=== PATIENT | male | born 1950 | race Caucasian/White ===

== ENCOUNTER 2016-10-09 13:17 | Observation (INO) | payer OTHER, MEDICARE ==
[~2016-10-09] VITALS: Ht 180.3 cm; Wt 127.0 kg
[2016-10-09 14:02] LABS: Basophils # (auto) 0.1 uL; Basophils % (auto) 0.8 % (0.0-2.0); Eosinophils # (auto) 0.2 uL; Eosinophils % (auto) 2.4 % (0.0-7.0); Hematocrit 45.5 % (41.0-53.0); Hemoglobin 15.4 g/dL (13.5-17.5); Lymphocytes # (auto) 1.5 uL; Mean Corpuscular Hemoglobin 31.8 pg (28.0-32.0); Mean Corpuscular Hgb Conc. 33.9 g/dL (32.0-36.0); Mean Corpuscular Volume 93.9 fL (80.0-100.0); Mean Platelet Volume 7.4 fL (7.4-10.4); Monocytes # (auto) 0.5 uL; Monocytes % (auto) 6.8 % (0.0-12.0); Neutrophils # (auto) 4.8 uL; Platelet Count (auto) 236 10^3/uL (140-450); Red Cell Distribution Width 13.4 % (11.6-16.0)
[2016-10-09] MEDS ORDERED: ALBUTEROL SULF 2.5 MG/0.5ML(0.5%) NEB SOLN HHN ONE (14:30)
[2016-10-09] MEDS ORDERED: methylPREDNISolone SOD SUCC 125 MG/2 ML VL IV ONE (14:30)
[2016-10-09] MEDS ORDERED: IPRATROPIUM BROM 0.5 MG/2.5ML INH SOL HHN ONE (14:30)
[2016-10-09 14:32] LABS: B-Type Natriuretic Peptide 98.05 pg/mL (0-100)
[2016-10-09 14:36] LABS: Temperature: 23.9 C (20.0-25.0)
[2016-10-09 14:40] LABS: Albumin 3.7 g/dL (3.4-5.0); Alkaline Phosphatase 83 U/L (45-117); Anion Gap 8 (5-15); Aspartate Aminotransferase 17 U/L (15-37); BUN/Creatinine Ratio 15.2; Bilirubin, Total 0.6 mg/dL (0.2-1.0); Blood Urea Nitrogen 16 mg/dL (7-18); Calcium 8.8 mg/dL (8.5-10.1); Carbon Dioxide 26 mmol/L (21-32); Chloride 106 mmol/L (98-107); GFR African American 91 mL/min; GFR Non-African American 75 mL/min; Glucose 105 mg/dL (74-106); Magnesium 2.4 mg/dL (1.6-2.6); Potassium 4.1 mmol/L (3.5-5.1); Sodium 140 mmol/L (136-145); Total Protein 7.3 g/dL (6.4-8.2)
[2016-10-09] MEDS ORDERED: AZITHROMYCIN 500MG/D5W 250ML 250 ML IV ONE (15:00)
[2016-10-09] MEDS ORDERED: cefTRIAXone 1GM/50ML D5W 50 ML IV ONE (15:00)
[2016-10-09 16:06] LABS: Urine RBC None Seen /hpf (0 - 3)
[2016-10-09 16:14] LABS: Urine Bilirubin Negative (Negative); Urine Blood Negative /uL (Negative); Urine Color Yellow (Yellow); Urine Glucose Normal (Normal); Urine Ketone Negative (Negative); Urine Nitrite Negative (Negative); Urine Squamous Epithelial Cell FEW /hpf (<5); Urine Urobilinogen Normal (Negative); Urine pH 5.5 (5.0-8.0)
[2016-10-09 17:41] VITALS: BP 127/88
== END 2016-10-09 17:55 | disposition short-term general hospital (02) | DRG 194 ==
LOC: ER 13:17 → OVERFLOW 13:33 → ER 17:55
PROVIDERS: ADMIT Family Medicine; ATTEND Family Medicine
DX: J18.9 Pneumonia, unspecified organism (principal); J44.1 Chronic obstructive pulmonary disease with (acute) exacerbation; Z87.891 Personal history of nicotine dependence; Z99.81 Dependence on supplemental oxygen
CPT/HCPCS: 36415; 71010; 80053; 81001; 83605; 83735; 83880; 84484; 85025; 85379; 87040; 93005; 94640; 96365; 96366; 96367; 96375; 99285; G0378; J0456; J0696; J2930